=== PATIENT | female | born 1970 | race Two or more races ===

== ENCOUNTER 2022-06-18 15:16 | Inpatient (IN) | payer MEDICAID ==
[~2022-06-18] VITALS: Ht 165.1 cm; Wt 59.0 kg
--- NOTE | 2022-06-18 15:31 | NUR ---
[email or web address], medical screening exam in progress
[2022-06-18 15:48] LABS: HEMATOCRIT 40.8 % (31.2-41.9); MEAN CORPUSCULAR HEMOGLOBIN 29.3 uug (24.7-32.8); PLATELET COUNT (AUTO) 408 K/uL (179-408)
[2022-06-18 16:03] LABS: CREATININE 0.7 mg/dL (0.6-1.3); POTASSIUM 3.5 mmol/L (3.5-5.1)
[2022-06-18 16:03] LABS: *BILIRUBIN,URIN NEGATIVE (NEGATIVE); *BLOOD, URINE 1+ (NEGATIVE); *CLARITY,URINE CLEAR (CLEAR); *COLOR,URINE YELLOW (YELLOW); *KETONES,URINE 3+ (NEGATIVE); *UROBILINOGEN,URINE 0.2 E.U./dl (NORMAL); LEUKOCYTE ESTERASE ,URINE 1+ (NEGATIVE); NITRITE, URINE NEGATIVE (NEGATIVE); UGLUCOSE NEGATIVE (NEGATIVE)
[2022-06-18 16:08] LABS: *URINE HCG, QUAL NEG (NEGATIVE)
[2022-06-18 16:09] LABS: BILIRUBIN,DIRECT 0.1 mg/dL (0.0-0.2); BILIRUBIN,TOTAL 0.5 mg/dL (0.2-1.0); TOTAL PROTEIN, SERUM 8.2 g/dL (6.4-8.2)
--- NOTE | 2022-06-18 16:28 | NUR ---
Patient changed her mind and wanted medicines now for pain and nausea. MD is at bedside.
[2022-06-18] MEDS ORDERED: ACET-2154 PO (16:57)
--- NOTE | 2022-06-18 17:23 | NUR ---
Pt. admitted to medical-surgical floor room 317 , under care of Dr. Preston Aguilera. Nurse Daniel accepted nursing report. Belongings List completed.
[2022-06-18] MEDS ORDERED: CEFTRIAXONE /D5W 50ML IVPB **ER PYXIS IV ONE (17:30)
[2022-06-18] MEDS ORDERED: PANTOPRAZOLE SODIUM 40 MG VIAL IV SCH (17:30)
[2022-06-18] MEDS ORDERED: PANTOPRAZOLE SODIUM 40 MG VIAL ONE (17:30)
[2022-06-18] MEDS: CEFTRIAXONE 1 G in IV DEXTROSE 5% 50 ML IV SCH (17:34)
--- NOTE | 2022-06-18 18:05 | NUR ---
Received pt. admission from ER via wheel chair with chief complaint of abdominal pain, gastric outlet obstruction. Patient on NPO with IV site on left forearm g. 20, intact and patent. No complain of pain, vital signs stable. Assessment done Dr. Aguilera informed of admission
[2022-06-18 18:10] VITALS: BP 121/81
[2022-06-18] MEDS ORDERED: MORPHINE SULFATE 2 MG/1 ML DISP.SYRIN IV PRN (19:15)
[2022-06-18] MEDS ORDERED: ONDANSETRON 4 MG/2 ML VIAL IV PRN (19:15)
--- NOTE | 2022-06-18 20:00 | NUR ---
RECEIVED PATIENT AWAKE IN BED. A/O X4. CHADIAN SPEAKING, BUT ABLE TO MAKE NEEDS KNOWN. VSS. RAGHU NOTED TO LEFT FA #20 GAUGE, INTACT AND PATENT. C/O MILD DISCOMFORT IN ABDOMEN, BUT REFUSES FOR ANY PAIN MEDICATION AT THIS TIME. DENIES ANY N/V. CALL LIGHT IN REACH. ALL NEEDS ATTENDED. WILL CONTINUE TO MONITOR AND ASSESS.
[2022-06-18 20:27] VITALS: BP 126/79
[2022-06-18] MEDS: IV LACTATED RINGERS SOLUTION 1,000 ML IV PRN (20:31)
[2022-06-18 20:38] LABS: BACTERIA,URINE FEW /HPF (NONE SEEN); SQUAMOUS EPITHELIAL CELL,UR FEW /HPF (NONE SEEN)
[2022-06-19 04:24] VITALS: BP 99/63
--- NOTE | 2022-06-19 04:31 | NUR ---
PATIENT AWAKE IN BED. VSS. IVF INFUSING WELL ORDERED TO LEFT FA #20 GAUGE. C/O MILD DISCOMFORT IN ABDOMEN, BUT REFUSES FOR ANY PAIN MEDICATION AT THIS TIME. CALL LIGHT IN REACH. ALL NEEDS ATTENDED. WILL CONTINUE TO MONITOR AND ASSESS.
[2022-06-19 06:32] LABS: HEMATOCRIT 35.7 % (31.2-41.9); MEAN CORPUSCULAR HEMOGLOBIN 29.8 uug (24.7-32.8); MEAN CORPUSCULAR VOLUME 90.2 fL (75.5-95.3); PLATELET COUNT (AUTO) 339 K/uL (179-408)
[2022-06-19 06:48] LABS: BILIRUBIN,TOTAL 0.6 mg/dL (0.2-1.0); CREATININE 0.6 mg/dL (0.6-1.3); MAGNESIUM 1.7 mg/dL (1.8-2.4); PHOSPHOROUS 4.9 mg/dL (2.5-4.9); POTASSIUM 3.7 mmol/L (3.5-5.1); TOTAL PROTEIN, SERUM 6.7 g/dL (6.4-8.2)
[2022-06-19] MEDS: ASPIRIN 81 MG TAB.CHEW PO SCH (08:27)
[2022-06-19] MEDS: PANTOPRAZOLE SODIUM 40 MG VIAL IV SCH ×2 (08:27→16:04)
[2022-06-19] MEDS: IV LACTATED RINGERS SOLUTION 1,000 ML IV PRN (08:55)
--- NOTE | 2022-06-19 09:27 | NUR ---
Pt. refused to sign the Consent for EGD procedure and said will sign after talking with the surgeon at the OR unit.
--- NOTE | 2022-06-19 09:50 | NUR ---
Pt. left the unit to OR for EGD surgery. Pt. noted to be stable when she left.
[2022-06-19] MEDS ORDERED: PROPOFOL 200 MG/20 ML BOTTLE ONE (10:00)
[2022-06-19] MEDS ORDERED: LIDOCAINE-MPF 2% 5 ML VIAL ONE (10:00)
[2022-06-19] MEDS ORDERED: MAGNESIUM SULFATE/D5W 100 ML IV SCH ×2 (10:30→17:00)
[2022-06-19] MEDS: MAGNESIUM SULFATE/D5W 100 ML IV SCH ×2 (11:21→12:27)
[2022-06-19 11:31] VITALS: BP 103/66
[2022-06-19] MEDS ORDERED: CEFTRIAXONE 1 G in IV DEXTROSE 5% 50 ML IV SCH (12:00)
[2022-06-19 15:39] VITALS: BP 96/69
[2022-06-19] MEDS: METOCLOPRAMIDE HCL 10 MG/2 ML VIAL IV SCH ×2 (16:04→23:41)
[2022-06-19] MEDS: CEFTRIAXONE 1 G in IV DEXTROSE 5% 50 ML IV SCH (16:36)
[2022-06-19 16:55] VITALS: BP 105/73
--- NOTE | 2022-06-19 17:55 | NUR ---
Pt. is [place] speaking female. Able to ambulate to bathroom. No c/o pain. Noted to be stable through out the shift. All need attended and met. Compliance with the care given. Will keep monitoring the patient.
[2022-06-19 19:41] VITALS: BP 105/72
[2022-06-20] MEDS: IV LACTATED RINGERS SOLUTION 1,000 ML IV PRN (03:38)
[2022-06-20 04:03] VITALS: BP 121/75
--- NOTE | 2022-06-20 06:44 | NUR ---
Stable the whole shift, slept intermittently, no acute distress noted. IVF infusing well. NPO post midnight for XR Upper GI w/o KUB in the morning. Needs assessed and attended to.
[2022-06-20] MEDS: METOCLOPRAMIDE HCL 10 MG/2 ML VIAL IV SCH ×2 (06:56→16:01)
[2022-06-20 07:31] LABS: CREATININE 0.6 mg/dL (0.6-1.3); MAGNESIUM 1.7 mg/dL (1.8-2.4); POTASSIUM 3.4 mmol/L (3.5-5.1)
[2022-06-20] MEDS: PANTOPRAZOLE SODIUM 40 MG VIAL IV SCH (08:15)
[2022-06-20] MEDS: ASPIRIN 81 MG TAB.CHEW PO SCH (08:15)
[2022-06-20] MEDS ORDERED: FAMOTIDINE. 20 MG/2 ML VIAL IV ONE (08:56)
[2022-06-20] MEDS ORDERED: SUCCINYLCHOLINE CHLORIDE 200 MG/10 ML VIAL ONE (08:57)
[2022-06-20] MEDS ORDERED: FENTANYL CITRATE 100 MCG/2 ML AMPUL ONE (09:22)
--- NOTE | 2022-06-20 09:26 | NUR ---
PER VIK IN SAME DAY UNIT, SHE SAID TO PUT A HOLD ON UPPER GI UNTIL SHE SPOKE TO THE DOCTOR
--- NOTE | 2022-06-20 09:27 | NUR ---
VIK FROM SAME DAY CARE UNIT, HAS SPOKE TO THE DOCTOR AND SHE SAID SHE UPPER GI HAS BEEN CANCELED, BUT SHE WILL CANCEL UNTIL AFTER PATIENT'S SURGERY. I HAS HER TALK TO THE X-RAY ON THE FLOOR
--- NOTE | 2022-06-20 09:40 | NUR ---
Pt. picked up by OR nurses and noted to be stable upon the transfer.
[2022-06-20] MEDS ORDERED: ONDANSETRON 4 MG/2 ML VIAL ONE (10:00)
[2022-06-20] MEDS ORDERED: PROPOFOL 200 MG/20 ML BOTTLE ONE (10:00)
[2022-06-20] MEDS ORDERED: LIDOCAINE-MPF 2% 5 ML VIAL ONE (10:00)
[2022-06-20] MEDS ORDERED: METOCLOPRAMIDE HCL 10 MG/2 ML VIAL ONE (10:00)
[2022-06-20] MEDS ORDERED: POTASSIUM CHLORIDE 50 ML IV SCH (11:00)
[2022-06-20] MEDS ORDERED: methylPREDNISolone SOD SUCC 125 MG/2 ML VIAL ONE (11:16)
[2022-06-20] MEDS ORDERED: IV LACTATED RINGERS SOLUTION 1,000 ML IV PRN (11:30)
[2022-06-20] MEDS ORDERED: SUCRALFATE 1 G TABLET PO SCH (11:30)
--- NOTE | 2022-06-20 12:21 | NUR ---
Pt. came back from OR and noted to be stable. Received report from OR nurse (Jerrell). No c/o pain. All need attended and met. Will keep monitoring the patient.
[2022-06-20] MEDS ORDERED: PANT40TA49 PO (13:14)
[2022-06-20] MEDS: MAGNESIUM SULFATE/D5W 100 ML IV SCH ×2 (13:17→14:17)
[2022-06-20 15:04] VITALS: BP 105/66
[2022-06-20] MEDS: POTASSIUM CHLORIDE 50 ML IV SCH ×2 (15:52→17:16)
--- NOTE | 2022-06-20 16:07 | NUR ---
Pt. had order for Carafate at 11:30am but at that time pt. was at the OR unit. Dose for 1630 was administer by (Boris) cause pt. was back to [facility] unit.
[2022-06-20] MEDS: CEFTRIAXONE 1 G in IV DEXTROSE 5% 50 ML IV SCH (17:30)
--- NOTE | 2022-06-20 17:46 | NUR ---
Pt. refused to take the ATB (Rocephin) despite the nurse explained the importance of taking the medication. Pt. stated that "Since morning I have taking a lot of IV medications and I do not want to take more".
--- NOTE | 2022-06-20 19:07 | NUR ---
Pt. 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 Pt. noted to be stable upon the discharge. All personal belonging returned to the patient. All necessary document signed. Skin assessment done and noted skin to be clean and intact. Will keep monitoring the pt. till she is picked up by her daughter.
--- NOTE | 2022-06-20 20:15 | NUR ---
Picked up by daughter, left in stable condition with discharge papers and belongings.
[2022-06-21] MEDS ORDERED: PANTOPRAZOLE SODIUM 40 MG VIAL IV SCH (09:00)
== END 2022-06-20 20:12 | disposition home or self-care (01) | DRG 241 ==
LOC: ER 15:16 → EDBD 15:16 → MEDSURG3 17:23
PROVIDERS: ADMIT Nurse Practitioner Acute Care; ATTEND Nurse Practitioner Acute Care
PROC: 0DB68ZX Excision of Stomach, Via Natural or Artificial Opening Endoscopic, Diagnostic (ICD-10-PCS; principal; 2022-06-19)
PROC: 0D768ZZ Dilation of Stomach, Via Natural or Artificial Opening Endoscopic (ICD-10-PCS; 2022-06-20)
DX: K26.9 Duodenal ulcer, unspecified as acute or chronic, without hemorrhage or perforation (principal); K31.1 Adult hypertrophic pyloric stenosis; E88.89 Other specified metabolic disorders; K29.50 Unspecified chronic gastritis without bleeding; K31.84 Gastroparesis; N39.0 Urinary tract infection, site not specified; Z53.20 Procedure and treatment not carried out because of patient's decision for unspecified reasons; Z87.11 Personal history of peptic ulcer disease; Z98.890 Other specified postprocedural states
CPT/HCPCS: 36415; 83690; 83735; 84100; 84703; 85025; A4663; C9113; G0378; J0330; J0696; J2405; J2765; J2930; J3010; J3475; J3480; J3490; J7120